=== PATIENT | male | born 1995 | race Caucasian/White ===

== ENCOUNTER → 2025-08-07 | Emergency (ER) | payer MEDICAID ==
[~2025-08-07] VITALS: Ht 165.1 cm; Wt 60.0 kg
[~2025-08-07] MED LIST: ALBU18HF2 IH
[2025-08-07] MEDS: ALBUTEROL (0.083%) 2.5MG/3ML NEB HHN ONE (09:15)
[2025-08-07] MEDS: DEXAMETHASONE 4MG TABLET PO ONE (09:30)
[2025-08-07 09:35] VITALS: PULSE 108; RESP 18; O2SAT 95
[2025-08-07] MEDS: ALBUTEROL (0.083%) 2.5MG/3ML NEB HHN SCH (09:35)
[2025-08-07] MEDS: IPRATROPIUM BROMIDE (0.02%) 0.5MG/2.5ML NEB HHN SCH (09:35)
[2025-08-07 09:55] VITALS: PULSE 105; PULSE 108; RESP 18; RESP 20; O2SAT 95; O2SAT 96
[2025-08-07 10:24] VITALS: PULSE 115; RESP 20; O2SAT 100
[2025-08-07 11:45] VITALS: BP 104/65; PULSE 100; RESP 18; TEMP 38.3; O2SAT 98
== END ==
LOC: ER 08:00
DX: J45.901 Unspecified asthma with (acute) exacerbation (principal)
CPT/HCPCS: 94640; 99291; J8540; Z7610 ×3